=== PATIENT | female | born 1990 | race Caucasian/White ===

== ENCOUNTER 2016-09-28 18:30 | Emergency (ER) | payer BC ==
--- NOTE | 2016-09-28 20:09 | UC ---
Lower Extremity/Ankle HPI - HPI Summary HPI Summary: [place] right ankle at dog park 12 hours ago---pain over the top of her right foot - History of Current Complaint Chief Complaint: UCLowerExtremity Stated Complaint: RIGHT ANKLE INJURY Time Seen by Provider: 09/28/16 20:05 Hx Obtained From: Patient Hx Last Menstrual Period: NOW ?: No Onset/Duration: Sudden Onset, Lasting Days - 12, Still Present Severity Initially: Moderate Severity Currently: Mild Pain Intensity: 5 Pain Scale Used: 0-10 Numeric Aggravating Factor(s): Standing, Ambulation Alleviating Factor(s): Rest, Elevation Able to Bear Weight: Yes - with pain - Allergies/Home Medications Allergies/Adverse Reactions: Allergies Allergy/AdvReac Type Severity Reaction Status Date / Time No Known Allergies Allergy Verified 09/28/16 20:10 Home Medications: Home Medications Acetaminophen TAB* [Tylenol TAB*] 1,000 mg PO PRN 09/28/16 [History] PMH/Surg Hx/FS Hx/Imm Hx Previously Healthy: No Cardiovascular History Of: Reports: Hypertension - boderline bp during pg - Surgical History Surgical History: None - Family History Known Family History: Positive: None Family History: no reported cardio vascular issues in family lineage - Social History Occupation: Employed Full-time Lives: With Family Alcohol Use: None Substance Use Type: None Smoking Status (MU): Never Smoked Tobacco - Immunization History Most Recent Influenza Vaccination: 06/02/2015 Most Recent Tetanus Shot: 06/02/2015 Most Recent Pneumonia Vaccination: none Review of Systems Constitutional: Negative Skin: Negative Eyes: Negative ENT: Negative Respiratory: Negative Cardiovascular: Negative Gastrointestinal: Negative Genitourinary: Negative Motor: Negative Neurovascular: Negative Musculoskeletal: Arthralgia - right foot pain Neurological: Negative Psychological: Negative All Other Systems Reviewed And Are Negative: Yes Physical Exam Triage Information Reviewed: Yes Appearance: Well-Appearing, No Pain Distress, Well-Nourished Vital Signs Reviewed: Yes Eye Exam: Normal Eyes: Positive: Conjunctiva Clear ENT Exam: Normal ENT: Positive: Normal ENT inspection, Hearing grossly normal. Negative: Nasal congestion, Nasal drainage, Trismus, Muffled/hoarse voice Dental Exam: Normal Neck exam: Normal Neck: Positive: Supple, Nontender, No Lymphadenopathy Respiratory Exam: Normal Respiratory: Positive: Chest non-tender, No respiratory distress, No accessory muscle use Cardiovascular Exam: Normal Cardiovascular: Positive: RRR, Pulses Normal, Brisk Capillary Refill Musculoskeletal Exam: Normal Musculoskeletal: Positive: Strength Intact, ROM Intact, No Edema Neurological Exam: Normal Neurological: Positive: Alert, Muscle Tone Normal Psychological Exam: Normal Skin Exam: Normal Diagnostics - Radiology No standard instances Xray Interpretation: No Acute Changes Radiology Interpretation Completed By: Radiologist Lower Extremity Course/Dx - Course Course Of Treatment: rice, post op shoe,crutches, ibuprofen follow with ortho prn - Differential Dx/Diagnosis Differential Diagnosis/HQI/PQRI: Contusion, Fracture (Closed), Sprain, Strain Provider Diagnoses: Right foot sprain Discharge - Discharge Plan Condition: Stable Disposition: HOME Patient Education Materials: Ibuprofen (By mouth), Crutch Instructions (ED), Foot Sprain (ED) Referrals: Evelyn Pantoja MD [Medical Doctor] - 4 Days
[2016-09-28 20:10] VITALS: BP 132/92
--- NOTE | 2016-09-28 21:18 | RAD ---
INDICATION: Medial foot pain after a fall COMPARISON: None. TECHNIQUE: ) views of the right foot were obtained. FINDINGS: The adequately corticated bones are properly aligned. Joint spaces appear maintained. No fracture, dislocation or focal bony abnormality is seen. IMPRESSION: Normal radiograph of the right foot. If the patient's symptoms persist, follow-up imaging is recommended.
== END 2016-09-28 21:46 | disposition home or self-care (01) ==
LOC: UCEAST 18:30
DX: S93.601A Unspecified sprain of right foot, initial encounter (principal); I10 Essential (primary) hypertension; X50.1XXA Overexertion from prolonged static or awkward postures, initial encounter
CPT/HCPCS: 99212; G0463

== ENCOUNTER 2017-08-17 13:30 | Emergency (ER) | payer BC ==
[2017-08-17] MEDS ORDERED: Ketorolac INJ* 60 MG/2 ML VIAL IM ONE (14:37)
[2017-08-17] MEDS ORDERED: Ondansetron ODT TAB* 4 MG PO ONE (14:37)
--- NOTE | 2017-08-17 14:43 | UC ---
Headache HPI - HPI Summary HPI Summary: 27 yo WF p/w sudden right retro-ocular pulsatile MCBRIDE associated with nausea and loud noises associated with sudden heart palpitations and feelings of doom. MCBRIDE is characterized by "looking outside while In a fishbowl". Denies h/o anxiety and depression and cannot identify what triggers it - History Of Current Complaint Chief Complaint: UCGeneralIllness Stated Complaint: VISION COMPLAINT, TINGLING FINGERS Time Seen by Provider: 08/17/17 14:23 Hx Obtained From: Patient Hx From Patient Unobtainable Due To: Other Hx Last Menstrual Period: 1 week ago; has murina ?: No Initially Headache Was: Moderate Currently Pain Is: Moderate Pain Intensity: 7 - Allergies/Home Medications Allergies/Adverse Reactions: Allergies Allergy/AdvReac Type Severity Reaction Status Date / Time No Known Allergies Allergy Verified 08/17/17 13:39 PMH/Surg Hx/FS Hx/Imm Hx Previously Healthy: Yes - Surgical History Surgical History: None - Family History Known Family History: Positive: None Family History: no reported cardio vascular issues in family lineage - Social History Alcohol Use: Occasionally Substance Use Type: None Smoking Status (MU): Never Smoked Tobacco - Immunization History Most Recent Influenza Vaccination: 06/02/2015 Most Recent Tetanus Shot: 06/02/2015 Most Recent Pneumonia Vaccination: none Review of Systems Constitutional: Negative Skin: Negative Eyes: Negative ENT: Negative Respiratory: Negative Cardiovascular: Palpitations Gastrointestinal: Negative Genitourinary: Negative Motor: Negative Neurovascular: Negative Musculoskeletal: Negative Neurological: Headache Psychological: Anxious All Other Systems Reviewed And Are Negative: Yes Physical Exam Triage Information Reviewed: Yes Appearance: Well-Appearing, Obese Vital Signs: Initial Vital Signs Temp 36.4 C 08/17/17 13:33 Pulse 101 08/17/17 13:33 Resp 16 08/17/17 13:33 BP 142/87 08/17/17 13:33 Pulse Ox 98 08/17/17 13:33 Eye Exam: Normal ENT Exam: Normal Dental Exam: Normal Neck exam: Normal Neck: Positive: 1 Respiratory Exam: Normal Cardiovascular Exam: Normal Abdominal Exam: Normal Musculoskeletal Exam: Normal Neurological Exam: Normal Psychological Exam: Normal Skin Exam: Normal Diagnostics - EKG Cardiac Rate: NL Cardiac Rhythm: Sinus: Normal Ectopy: None ST Segment: Normal Headache Course/Dx - Course Course Of Treatment: MCBRIDE improved with IM Toradol and Zofran ODT, EKG unremarkable - Differential Dx/Diagnosis Provider Diagnoses: Panic attack. Migraine MCBRIDE Discharge - Sign-Out/Discharge Documenting (check all that apply): Discharge - Discharge Plan Condition: Stable Disposition: HOME Patient Education Materials: Panic Attack (ED), Acute Headache (ED), Ocular Migraine (ED) Referrals: German Clifton MD [Primary Care Provider] - Additional Instructions: Follow up with PCP and neuro referral if Headache persist - Billing Disposition and Condition Condition: STABLE Disposition: HOME
[2017-08-17 15:43] VITALS: BP 125/77
== END 2017-08-17 15:40 | disposition home or self-care (01) ==
LOC: UCEAST 13:30
DX: F41.0 Panic disorder [episodic paroxysmal anxiety] (principal); G43.909 Migraine, unspecified, not intractable, without status migrainosus
CPT/HCPCS: 93005; 96372; 99212; A9270-GY; G0463; J1885

== ENCOUNTER 2018-08-14 16:01 | Emergency (ER) | payer BC ==
[2018-08-14 16:26] VITALS: BP 130/85
--- NOTE | 2018-08-14 17:24 | UC ---
Nausea/Vomiting/Diarrhea HPI - HPI Summary HPI Summary: 28-year-old female presents with onset of nausea yesterday and then developed vomiting last night around midnight and some diarrhea this morning. She reports approximately 5-6 episodes of vomiting and 2-3 episodes of diarrhea. Last episode of vomiting was approximately 14:00. Had small episode of diarrhea shortly after arriving to the clinic. Denies fever, chills, weakness, dizziness , sore throat, abdominal pain, hematemesis, blood in stool, melena, dysuria, frequency, or urgency. No recent travel out of the country, consumption of raw or undercooked meat or seafood, or recent antibiotic use. - History of Current Complaint Chief Complaint: UCGI Stated Complaint: VOMITING Hx Obtained From: Patient Hx Last Menstrual Period: [id number] Pain Intensity: 5 - Allergies/Home Medications Allergies/Adverse Reactions: Allergies Allergy/AdvReac Type Severity Reaction Status Date / Time No Known Allergies Allergy Verified 08/14/18 16:26 Home Medications: Home Medications Escitalopram * [Lexapro 10 mg (NF)] 10 mg PO BEDTIME 08/14/18 [History Confirmed 08/14/18] Naproxen [Naproxen 500 mg tab] 500 mg PO BID PRN 08/14/18 [History Confirmed 01/24] traZODone TAB* [Desyrel TAB*] 100 mg PO BEDTIME PRN 08/14/18 [History Confirmed 08/14/18] PMH/Surg Hx/FS Hx/Imm Hx Previously Healthy: Yes Psychological History: Depression - Surgical History Surgical History: None - Family History Known Family History: Positive: Non-Contributory - Social History Occupation: Employed Full-time Lives: With Family Alcohol Use: Occasionally Substance Use Type: None Smoking Status (MU): Never Smoked Tobacco - Immunization History Most Recent Influenza Vaccination: 06/02/2015 Most Recent Tetanus Shot: 06/02/2015 Most Recent Pneumonia Vaccination: none Review of Systems All Other Systems Reviewed And Are Negative: Yes Constitutional: Negative: Fever, Chills ENT: Negative: Sore Throat Respiratory: Negative: Shortness Of Breath Cardiovascular: Negative: Palpitations, Chest Pain Gastrointestinal: Positive: Vomiting, Diarrhea, Nausea. Negative: Abdominal Pain Genitourinary: Negative: Dysuria, Hematuria, Frequency, Urgency, Vaginal/Penile Discharge, Abnormal Bleeding Musculoskeletal: Positive: Negative Neurological: Positive: Negative Is Patient Immunocompromised?: No Physical Exam - Summary Physical Exam Summary: GENERAL APPEARANCE: Well developed, well nourished, alert and cooperative, and appears to be in no acute distress. NECK: Neck supple, non-tender without lymphadenopathy. CARDIAC: Normal S1 and S2. No S3, S4 or murmurs. Rhythm is regular. There is no peripheral edema, cyanosis or pallor. Extremities are warm and well perfused. Capillary refill is less than 2 seconds. Peripheral pulses intact. LUNGS: Clear to auscultation without rales, rhonchi, wheezing or diminished breath sounds. ABDOMEN: Positive bowel sounds. Soft, nondistended, nontender. No guarding or rebound. No masses or hepatosplenomegally. No CVA tenderness. MUSKULOSKELETAL: ROM intact to all extremities. No joint erythema or tenderness. Normal muscular development. Normal gait. SKIN: Skin normal color, texture and turgor with no lesions or eruptions. Triage Information Reviewed: Yes Vital Signs: Initial Vital Signs Temp 98.6 F 08/14/18 16:21 Pulse 106 08/14/18 16:21 Resp 16 08/14/18 16:21 BP 130/85 08/14/18 16:21 Pulse Ox 99 08/14/18 16:21 Vital Signs Reviewed: Yes Re-Evaluation - Re-Evaluation First Eval Re-Evaluation Time: 18:30 Change: Improved Comment: Patient states nausea has greatly improved after the ondansetron. She was given a PO fluid challenge and able to tolerate without further episodes of vomiting or diarrhea. Will d/c home for oral rehydration. Naus/Vom/Diarrhea Course/Dx - Course Course Of Treatment: 28-year-old female presents with onset of nausea yesterday and then developed vomiting last night around midnight and some diarrhea this morning. She reports approximately 5-6 episodes of vomiting and 2-3 episodes of diarrhea. Last episode of vomiting was approximately 14:00. Had small episode of diarrhea shortly after arriving to the clinic. Denies fever, chills, weakness, dizziness , sore throat, abdominal pain, hematemesis, blood in stool, melena, dysuria, frequency, or urgency. No recent travel out of the country, consumption of raw or undercooked meat or seafood, or recent antibiotic use. Afebrile. Vital signs stable. Exam was overall unremarkable. POC UA showed trace protein, + nitrite, trace leukocyte esterase. Culture pending. Urine negative. She was given ondansetron 8 mg PO in the clinic with improvement in her symptoms. She was given a PO fluid challenge and was able to tolerate with no further episodes of vomiting or diarrhea. Will provide her with ondansetron 4 mg every 8 hours as needed for N/V and have her do oral rehydration at home. I have also treated her for UTI with Macrobid 100 mg BID x 5 days. She is to follow up with her PCP in 3 days if no improvement in symptoms. Anticipatory guidance and warning symptoms reviewed with patient. Verbalizes understanding and agrees with POC. - Differential Dx/Diagnosis Differential Diagnoses - Female: Gastroenteritis (Viral), Gastroenteritis ( Bacterial), Vomiting, Diarrhea Provider Diagnosis: Nausea vomiting and diarrhea, UTI (urinary tract infection) Condition At Discharge: Stable Discharge - Sign-Out/Discharge Documenting (check all that apply): Patient Departure All imaging exams completed and their final reports reviewed: No Studies - Discharge Plan Condition: Stable Disposition: HOME Prescriptions: Nitrofurantoin Monohyd/M-Cryst [Macrobid 100 mg Capsule] 100 mg PO BID #10 cap Ondansetron [Ondansetron Odt] 4 mg PO Q8HR PRN #9 tab.rapdis PRN Reason: Nausea/Vomiting Patient Education Materials: Acute Nausea and Vomiting (ED) Referrals: German Clifton MD [Primary Care Provider] - 3 Days (If no improvement) Additional Instructions: Take ondansetron 4 mg 1 tab every 8 hours as needed for nausea and vomiting. You were given a dose in the clinic at 5:50 pm. Drink plenty of fluids. Try to drink small amounts frequently to avoid filling your stomach to full which can cause vomiting. If you are still having vomiting, start with a clear liquid diet including soup broths, Jello, popsicles, and quinn-magnus with carbonation stirred out of it. You may then advance to a bland diet including saltine crackers, toast, bananas , rice, and applesauce. Then return to a normal diet as tolerated. The urine test performed in the clinic today showed a possible urinary tract infection. We will start you on an antibiotic for this. Take nitrofurantoin 100 mg twice a day for 5 days. Follow up here or with your primary care provider in 3-5 days if symptoms persist. Seek immediate medical attention in the emergency room if you develop fever greater than 100.5 F, have severe abdominal pain, persistent vomiting, blood in your vomit or stool, or any worsening of symptoms. - Billing Disposition and Condition Condition: STABLE Disposition: Home
[2018-08-14] MEDS ORDERED: Ondansetron ODT TAB* 4 MG PO ONE (17:40)
--- NOTE | 2018-08-16 16:37 | UC ---
- Progress Note Progress Note: 08/16/2018 Urine culture positive for E.Coli Pt Rx Nitrofurantoin PO which covers it Fianl sensitivity report still pending No change Caren العلي PA-C Course/Dx - Diagnoses Provider Diagnoses: Nausea vomiting and diarrhea, UTI (urinary tract infection) Discharge - Sign-Out/Discharge Documenting (check all that apply): Post-Discharge Follow Up All imaging exams completed and their final reports reviewed: No Studies - Discharge Plan Condition: Stable Disposition: HOME Prescriptions: Nitrofurantoin Monohyd/M-Cryst [Macrobid 100 mg Capsule] 100 mg PO BID #10 cap Ondansetron [Ondansetron Odt] 4 mg PO Q8HR PRN #9 tab.rapdis PRN Reason: Nausea/Vomiting Patient Education Materials: Acute Nausea and Vomiting (ED) Referrals: German Clifton MD [Primary Care Provider] - 3 Days (If no improvement) Additional Instructions: Take ondansetron 4 mg 1 tab every 8 hours as needed for nausea and vomiting. You were given a dose in the clinic at 5:50 pm. Drink plenty of fluids. Try to drink small amounts frequently to avoid filling your stomach to full which can cause vomiting. If you are still having vomiting, start with a clear liquid diet including soup broths, Jello, popsicles, and quinn-magnus with carbonation stirred out of it. You may then advance to a bland diet including saltine crackers, toast, bananas , rice, and applesauce. Then return to a normal diet as tolerated. The urine test performed in the clinic today showed a possible urinary tract infection. We will start you on an antibiotic for this. Take nitrofurantoin 100 mg twice a day for 5 days. Follow up here or with your primary care provider in 3-5 days if symptoms persist. Seek immediate medical attention in the emergency room if you develop fever greater than 100.5 F, have severe abdominal pain, persistent vomiting, blood in your vomit or stool, or any worsening of symptoms. - Billing Disposition and Condition Condition: STABLE Disposition: Home
== END 2018-08-14 19:00 | disposition home or self-care (01) ==
LOC: UCEAST 16:01
DX: R11.2 Nausea with vomiting, unspecified (principal); R19.7 Diarrhea, unspecified; N39.0 Urinary tract infection, site not specified
CPT/HCPCS: 81003; 84702; 87077; 87086; 87186; 99212; A9270-GY; G0463

== ENCOUNTER 2018-10-11 07:29 | Emergency (ER) | payer BC ==
[2018-10-11 07:42] VITALS: BP 125/80
--- NOTE | 2018-10-11 07:54 | UC ---
UC General HPI - HPI Summary HPI Summary: 28-year-old otherwise healthy female presents with 5 days of cough, congestion and voice change. She states that she presented to her doctor several days ago after experiencing some generalized abdominal pain which has since resolved. He treated her for the cough and belly pain as possible GERD/reflux. She states the medications have made no difference. She denies any significant sore throat, abdominal pain, fever. She does have seasonal allergies which have been acting up lately and she has been taking Claritin for that. - History of Current Complaint Chief Complaint: UCRespiratory Stated Complaint: COUGH/CHEST CONGESTION Time Seen by Provider: 10/11/18 07:40 Hx Obtained From: Patient Hx Last Menstrual Period: mirena Pain Intensity: 7 - Allergy/Home Medications Allergies/Adverse Reactions: Allergies Allergy/AdvReac Type Severity Reaction Status Date / Time No Known Allergies Allergy Verified 08/14/18 16:26 PMH/Surg Hx/FS Hx/Imm Hx Previously Healthy: Yes - seasonal allergies only - Surgical History Surgical History: None - Family History Known Family History: Positive: None, Non-Contributory Family History: no reported cardio vascular issues in family lineage - Social History Lives: With Family - Child has been ill Alcohol Use: Occasionally Substance Use Type: None Smoking Status (MU): Never Smoked Tobacco - Immunization History Most Recent Influenza Vaccination: 06/02/2015 Most Recent Tetanus Shot: 06/02/2015 Most Recent Pneumonia Vaccination: none Review of Systems All Other Systems Reviewed And Are Negative: Yes Constitutional: Negative: Fever Skin: Negative: Rash ENT: Positive: Nasal Discharge, Sinus Congestion. Negative: Sore Throat, Sinus Pain/Tenderness Respiratory: Positive: Cough - greenish sputum. Negative: Shortness Of Breath Cardiovascular: Positive: Negative Gastrointestinal: Negative: Abdominal Pain Physical Exam Triage Information Reviewed: Yes Appearance: Well-Appearing, No Pain Distress, Well-Nourished Vital Signs: Initial Vital Signs Temp 98.8 F 10/11/18 07:36 Pulse 98 10/11/18 07:36 Resp 20 10/11/18 07:36 BP 125/80 10/11/18 07:36 Pulse Ox 95 10/11/18 07:36 Vital Signs Reviewed: Yes Eyes: Positive: Conjunctiva Clear ENT: Positive: TMs normal, Tonsillar exudate, Hoarse voice. Negative: Pharyngeal erythema, Tonsillar swelling, Sinus tenderness Neck: Positive: Supple, Nontender, No Lymphadenopathy Respiratory: Positive: Lungs clear, No respiratory distress Cardiovascular: Positive: RRR Musculoskeletal: Positive: ROM Intact Neurological: Positive: Alert Psychological Exam: Normal Skin Exam: Normal Course/Dx - Course Course Of Treatment: Allergic rhinitis versus viral. Lungs are clear. No fever. No distress. Treat with steroids, decongestant and continue Claritin. - Diagnoses Provider Diagnosis: Allergic rhinitis, Acute bronchitis Discharge - Sign-Out/Discharge Documenting (check all that apply): Patient Departure All imaging exams completed and their final reports reviewed: No Studies - Discharge Plan Condition: Improved Disposition: HOME Prescriptions: Dexamethasone TAB* [Decadron TAB*] 8 mg PO DAILY #8 tab Guaifenesin/Phenylephrine HCl [Chest-Sinus Congst Rlf Tablet] 1 each PO BID PRN #14 tablet PRN Reason: Congestion Patient Education Materials: Allergic Rhinitis (ED) Referrals: German Clifton MD [Primary Care Provider] - Additional Instructions: Continue Claritin. Discontinue reflux medications if they are not helping. Humidifier while sleeping. Return with fever greater than 100.4, difficulty breathing, worse or other concerns as discussed. Follow up with primary care physician as needed. - Billing Disposition and Condition Condition: IMPROVED Disposition: Home
== END 2018-10-11 07:50 | disposition home or self-care (01) ==
LOC: UCEAST 07:29
DX: J30.9 Allergic rhinitis, unspecified (principal); J20.9 Acute bronchitis, unspecified
CPT/HCPCS: 99212; G0463

== ENCOUNTER 2024-03-12 08:11 | Inpatient (IN) ==
[2024-03-11] MEDS: Dinoprostone 10 MG VAG.SUPP VAGINAL ONE (23:40)
[2024-03-12] MEDS ORDERED: Nalbuphine 10 MG/ML 1 ML VIAL IV PRN (09:55)
[2024-03-12] MEDS ORDERED: Prochlorperazine 5 mg/ml 2 ml VIAL (10 mg) IV PRN (09:55)
[2024-03-12] MEDS ORDERED: Lidocaine 1% VIAL 10 MG/ML 30 ML VIAL INJ PRN (09:55)
[2024-03-12] MEDS: miSOPROStol 100 mcg TAB PO ONE ×3 (10:13→19:01)
[2024-03-12 11:06] LABS: Urine Benzodiazepine Screen None Detected (None Detect); Urine Cannabinoids Screen None Detected (None Detect); Urine Opiates Screen None Detected (None Detect)
[2024-03-13] MEDS: Buffered Lidocaine 1% SYRIN 1 ml INTRADERM ONE (12:52)
[2024-03-13] MEDS: Lidocaine 2% JELLY 6 ML Topical TOPICAL ONE (12:52)
[2024-03-13] MEDS: miSOPROStol 100 mcg TAB VAGINAL ONE ×2 (13:40→19:20)
[2024-03-14] MEDS: Oxytocin in LR 20,000 MILLI.UNIT/1,000 ML BAG IV SCH (00:10)
[2024-03-14 00:32] LABS: ABS Basophils 0.1 10^3/uL (0.0-0.1); ABS Eosinophils 0.1 10^3/uL (0.0-0.5); ABS Lymphocytes 3.1 10^3/uL (1.0-4.8); ABS Monocytes 0.8 10^3/uL (0.0-0.9); ABS Neutrophils 9.4 10^3/uL (1.5-7.6); Eosinophil % 0.9 %; Hematocrit 37.9 % (35-45); Hemoglobin 12.6 g/dL (11.5-14.3); Lymphocyte % 22.9 %; Mean Corpuscular Hemoglobin 28.2 pg (27-33); Mean Corpuscular Hgb Conc 33.2 g/dL (31-36); Mean Corpuscular Volume 84.9 fL (80-97); Mean Platelet Volume 9.5 fL (7.5-11.2); Platelet Count 259 10^3/uL (150-450); Red Blood Count 4.46 10^6/uL (3.63-4.92); Red Cell Distribution Width 13.9 % (12-17); White Blood Count 13.4 10^3/uL (3.8-11.8)
[2024-03-14] MEDS: Lactated Ringers 1000 ml BAG 1,000 ML IV SCH ×2 (02:16→08:00)
[2024-03-14] MEDS ORDERED: Phenylephrine 40 mcg/mL 10mL (400mcg) SYRINGE IV PUSH PRN ×2 (07:54)
[2024-03-14] MEDS ORDERED: Sodium Citrate/Citric Acid LIQ 15 ML UDC PO PRN (07:54)
[2024-03-14] MEDS: OBEPIDURAL (200 ML) 200 ML EPIDURAL SCH (09:00)
[2024-03-14 10:00] LABS: Urine Creatinine Concentration 72.44 mg/dL (20.00-320.00); Urine TP Creat Ratio 0.08 mg/mg
[2024-03-14 10:07] LABS: Albumin 2.5 g/dL (3.2-5.2); Albumin/Globulin Ratio 1.6 (1-3); Calcium 8.1 mg/dL (8.6-10.3); Creatinine, Serum 0.55 mg/dL (0.51-0.95); Globulin 1.6 g/dL (2-4); Total Bilirubin 0.4 mg/dL (0.2-1.0); Total Protein 4.1 g/dL (6.4-8.9); Uric Acid 3.8 mg/dL (2.3-6.6); eGFR CKD-EPI 125.6 (>60)
[2024-03-14] MEDS: Calcium Carb (TUMS) 500 mg CHEW TAB PO PRN (10:29)
[2024-03-14] MEDS: Lactated Ringers 1000 ml BAG 1,000 ML IV ONE ×2 (15:49→15:50)
[2024-03-14] MEDS: OBEPIDURAL (200 ML) 200 ML EPIDURAL ONE (15:50)
[2024-03-14] MEDS: Lidocaine/Epinephrin 1.5%/200 5 ML AMP INJ ONE (15:50)
[2024-03-14] MEDS: Ropivacaine (OR use only) 2 MG/ML 10 ML ONE (15:51)
[2024-03-14] MEDS ORDERED: Lactated Ringers 1000 ml BAG 1,000 ML IV SCH (23:45)
[2024-03-14] MEDS ORDERED: Polyethylene Glycol 3350 17 GM PACKET PO PRN (23:58)
[2024-03-15] MEDS: Witch Hazel PAD JAR TOPICAL PRN (00:54)
[2024-03-15] MEDS: Dibucaine 1% OINT 28.35 GM TUBE PR PRN (00:54)
[2024-03-15 07:52] LABS: ABS Basophils 0.1 10^3/uL (0.0-0.1); ABS Lymphocytes 1.6 10^3/uL (1.0-4.8); ABS Neutrophils 10.9 10^3/uL (1.5-7.6); Eosinophil % 0.3 %; Hematocrit 33.8 % (35-45); Hemoglobin 11.3 g/dL (11.5-14.3); Mean Corpuscular Hemoglobin 28.6 pg (27-33); Mean Corpuscular Hgb Conc 33.4 g/dL (31-36); Mean Corpuscular Volume 85.5 fL (80-97); Mean Platelet Volume 9.7 fL (7.5-11.2); Platelet Count 227 10^3/uL (150-450); Red Blood Count 3.95 10^6/uL (3.63-4.92); White Blood Count 13.7 10^3/uL (3.8-11.8)
[2024-03-15] MEDS: Oxytocin in LR 20,000 MILLI.UNIT/1,000 ML BAG IV SCH (14:38)
[2024-03-15] MEDS: Phenylephrine 40 mcg/mL 10mL (400mcg) SYRINGE ONE (19:08)
[2024-03-17 05:19] VITALS: BP 137/88
== END 2024-03-16 23:58 | disposition home or self-care (01) | DRG 560 ==
LOC: MCHOBOUT 08:11 → MCHOB 08:45
PROVIDERS: ADMIT Advanced Practice Midwife; ATTEND Midwife